=== PATIENT | male | born 1970 | race Caucasian/White ===

== ENCOUNTER 2016-10-03 14:54 | Emergency (ER) | payer SELFPAY ==
[2016-10-03 15:19] VITALS: BP 158/88
--- NOTE | 2016-10-03 16:06 | EDM.PDOC ---
ED HPI GENERAL MEDICAL PROBLEM - General Chief Complaint: Lower Extremity Injury/Pain Stated Complaint: LEFT KNEE PAIN Time Seen by Provider: 10/03/16 15:29 Source of Information: Reports: Patient History Limitations: Reports: No Limitations - History of Present Illness INITIAL COMMENTS - FREE TEXT/NARRATIVE: 45-year-old male presents for evaluation and treatment of left knee pain. Patient reports he hasn't been experiencing pain in the left knee over the last 2 weeks. He states that he can no longer walk on it or push in the clutch when he is driving. This is now affecting his work and daily living. He states that he had surgery on the knee about 8 years ago. He had a gout flareup about 2 weeks ago. He is not taking any prescription medications but takes herbal and fcot-lok-wjktomc medications for his gout flares. Reports pain since the gout flare. He reports difficulty flexing and extending the knee. He denies any current redness, swelling, bruising, numbness or tingling. Duration: Week(s): (2), Getting Worse Location: Reports: Lower Extremity, Left Left Neck Pain Score (Numeric/FACES): 10 - Related Data Allergies Allergy/AdvReac Type Severity Reaction Status Date / Time No Known Allergies Allergy Verified 10/03/16 15:20 Home Meds: Home Meds Gout Med? 10/02/13 [History] Naproxen [Naprosyn] 500 mg PO Q12HR #30 tab 10/02/13 [Rx] traMADol [Ultram] 50 mg PO Q6H PRN #20 tab 10/02/13 [Rx] Past Medical History Musculoskeletal History: Reports: Gout, Other (See Below) Other Musculoskeletal History: "ripped my achielles tendon and a tendon broke my ankle once" Neurological History: Reports: Concussion - Infectious Disease History Infectious Disease History: Reports: Chicken Pox - Past Surgical History GI Surgical History: Reports: Colonoscopy Musculoskeletal Surgical History: Reports: Arthroscopic Knee Social & Family History - Family History Family Medical History: Noncontributory - Tobacco Use Smoking Status *Q: Current Every Day Smoker Years of Tobacco use: 30 Packs/Tins Daily: 1 Second Hand Smoke Exposure: Yes - Caffeine Use Caffeine Use: Reports: Soda Caffeine Use Comment: Daily - Alcohol Use Days Per Week of Alcohol Use: 0 Number of Drinks Per Day: 2 Total Drinks Per Week: 0 - Recreational Drug Use Recreational Drug Use: No Review of Systems - Review of Systems Review Of Systems: See Below Musculoskeletal: Reports: Joint Pain (left knee). Denies: Joint Swelling Skin: Denies: Bruising, Erythema, Wound Neurological: Reports: Difficulty Walking. Denies: Numbness, Tingling ED EXAM, GENERAL - Physical Exam Exam: See Below Exam Limited By: No Limitations General Appearance: Alert, WD/WN, No Apparent Distress Respiratory/Chest: No Respiratory Distress, Lungs Clear, Normal Breath Sounds Cardiovascular: Normal Peripheral Pulses, Regular Rate, Rhythm, No Murmur Peripheral Pulses: 2+: Posterior Tibial (L), Posterior Tibial (R) Extremities: Normal Inspection, Normal Capillary Refill, Limited Range of Motion (flexion of the left knee to 120 degrees, extension to 160 degrees). No : Joint Swelling, Richa's Sign, Redness Neurological: Alert, Oriented, Normal Cognition, Abnormal Gait (limping and favoring left knee) Psychiatric: Normal Affect, Normal Mood Skin Exam: Warm, Dry, Normal Color Course - Vital Signs Last Recorded V/S: Last Vital Signs Temp Pulse 96 10/03/16 15:14 Resp 18 10/03/16 15:14 BP 158/88 H 10/03/16 15:14 Pulse Ox 97 10/03/16 15:14 - Radiology Interpretation Free Text/Narrative:: xray of the left knee shows medial joint space narrowing - Re-Assessments/Exams Free Text/Narrative Re-Assessment/Exam: 10/03/16 17:47 I reviewed the x-ray results with the patient. I offered the patient prescription medication for pain such as narcotics. He does not want narcotics. I will prescribe him some Toradol from [facility] for pain relief. I will have him follow-up with orthopedics. I feel that is likely the degenerative change in his knee causing his pain. Discharge instructions as documented. Departure - Departure Time of Disposition: 17:49 Disposition: Home, Self-Care 01 Condition: fair Clinical Impression: Knee pain, left - Discharge Information Instructions: Knee Pain Referrals: PCP,None [Primary Care Provider] - Darryn Castillo MD [Physician] - Forms: ED Department Discharge Additional Instructions: Rx for toradol 10mg tabs given through [facility] Follow up with Dr. Sousa this week. I recommend you use the crutches that you have at home to rest the knee. Elevate the knee as much as you are able to. Ice the knee 4 or 5 times a day for about 15 minutes. Take the Toradol one tab every 6 hours as needed for severe pain. Do not take any other NSAIDs with the Toradol such as ibuprofen. may take Tylenol if needed for additional pain relief. Please return to the ER if your symptoms change or worsen.
--- NOTE | 2016-10-04 07:06 | CR ---
Left knee: Four views of the left knee were obtained. Comparison: Previous left knee radiograph of 11/27/13 and previous MRI left knee study of 12/09/13. Mild medial joint space narrowing is seen. Joint space narrowing has slightly progressed from prior exams. Lateral joint space is preserved. Small joint effusion is seen which is slightly more prominent than on previous exam. No acute fracture or other bony abnormality is seen. Impression: 1. Mild medial joint space narrowing slightly progressed from prior exams. 2. Small joint effusion slightly increased from previous MRI. Diagnostic code #3
== END 2016-10-03 18:00 | disposition home or self-care (01) ==
LOC: JD.ED 14:54
DX: M25.562 Pain in left knee (principal); F17.210 Nicotine dependence, cigarettes, uncomplicated; Z98.890 Other specified postprocedural states
CPT/HCPCS: 73564-26-LT; 73564-LT; 99283

== ENCOUNTER 2016-12-17 21:17 | Emergency (ER) | payer BC ==
[2016-12-17] MEDS ORDERED: Atropine 0.1 MG/ML 10 ML Syringe ONE (21:35)
[2016-12-17] MEDS ORDERED: Amiodarone 150 MG/3 ML SDV ONE (21:35)
[2016-12-17] MEDS ORDERED: Sodium Bicarbonate 8.4% 50 MEQ/50 ML Syringe ONE (21:35)
[2016-12-17] MEDS ORDERED: EPINEPHrine 1:10,000 1 MG/10 ML Syringe ONE ×2 (21:35)
[2016-12-17] MEDS ORDERED: DOPamine/Dextrose 5%-Water 400 MG/250 ML BAG IV ONE (21:35)
[2016-12-17] MEDS ORDERED: Calcium Chloride 10% 1 GM/10 ML Syringe ONE (21:35)
[2016-12-17] MEDS ORDERED: Dextrose 5% in Water 250 ML ONE (21:43)
[2016-12-17] MEDS ORDERED: Norepinephrine 4 MG/4 ML SDV ONE (21:46)
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
[2016-12-17] MEDS ORDERED: Sodium Chloride 0.9% 100 ML ONE (22:45)
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
== END 2016-12-17 23:00 ==
LOC: JD.ED 21:17
DX: I46.9 Cardiac arrest, cause unspecified (principal); E11.65 Type 2 diabetes mellitus with hyperglycemia; J69.0 Pneumonitis due to inhalation of food and vomit; E87.5 Hyperkalemia; E87.1 Hypo-osmolality and hyponatremia; I48.91 Unspecified atrial fibrillation; F17.210 Nicotine dependence, cigarettes, uncomplicated
CPT/HCPCS: 31500; 36415; 51702; 80053; 84484; 85025; 92950; 93005; 96361; 96365; 96374; 96375; 99291; 99292; J0171; J0282; J0461; J1265